=== PATIENT | female | born 1950 | race African-American/Black ===

== ENCOUNTER → 2016-12-20 14:05 | Outpatient (CLI) | payer BC ==
[2009-08-14 10:38] VITALS: BMI 23.6
== END | disposition home or self-care (01) ==
LOC: D.OPS 14:00
DX: M81.0 Age-related osteoporosis without current pathological fracture (principal)

== ENCOUNTER 2017-02-08 14:10 | Outpatient (CLI) | payer BC ==
[~2017-02-08] VITALS: Ht 177.8 cm; Wt 75.0 kg
[2017-02-08 14:50] VITALS: BP 145/89; Ht 177.8 cm; Wt 75.0 kg
--- NOTE | 2017-02-08 15:00 | NUR ---
1500 DENIES PROBLEMS WITH INJECTION, ZEINAB HECTOR SERVED, RELEASED AMB.
== END 2017-02-08 15:00 | disposition home or self-care (01) ==
LOC: D.OPS 14:10
DX: M81.0 Age-related osteoporosis without current pathological fracture (principal)

== ENCOUNTER → 2017-02-09 08:53 | Outpatient (CLI) | payer BC ==
[2017-02-08 14:50] VITALS: BMI 23.7
== END ==
LOC: D.MAMMO 08:53
DX: Z12.31 Encounter for screening mammogram for malignant neoplasm of breast (principal)

== ENCOUNTER 2017-02-18 13:41 | Emergency (ER) | payer BC ==
[2017-02-08 14:50] VITALS: BMI 23.7
== END 2017-02-18 14:32 | disposition home or self-care (01) ==
LOC: D.ER 13:41
DX: S29.012A Strain of muscle and tendon of back wall of thorax, initial encounter (principal); V43.52XA Car driver injured in collision with other type car in traffic accident, initial encounter; Y93.89 Activity, other specified; Y92.410 Unspecified street and highway as the place of occurrence of the external cause; K21.9 Gastro-esophageal reflux disease without esophagitis; I10 Essential (primary) hypertension

== ENCOUNTER → 2018-02-16 08:00 | Outpatient (CLI) | payer BC ==
[2017-02-08 14:50] VITALS: BMI 23.7
== END | disposition home or self-care (01) ==
LOC: D.MAMMO 08:00
DX: Z12.31 Encounter for screening mammogram for malignant neoplasm of breast (principal)

== ENCOUNTER 2018-08-23 06:45 | Emergency (ER) | payer OTHER ==
[~2018-08-23] VITALS: Ht 177.8 cm; Wt 77.3 kg
[2018-08-23 07:00] VITALS: Ht 177.8 cm; Wt 77.3 kg
[2018-08-23] MEDS ORDERED: TOPROL XL50 MG PO (07:01)
[2018-08-23] MEDS ORDERED: TERBINAFINE TAB 250 (07:01)
[2018-08-23] MEDS ORDERED: NIFEDIPINE ER60 MG (07:02)
[2018-08-23] MEDS ORDERED: LIPITOR40 MG PO (07:02)
[2018-08-23] MEDS ORDERED: DEXILANT60 MG PO (07:02)
[2018-08-23] MEDS ORDERED: MECLIZINE HCL25 MG PO (08:54)
[2018-08-23 09:30] VITALS: BP 175/97
== END 2018-08-23 09:23 | disposition home or self-care (01) ==
LOC: D.ER 06:45
DX: H81.09 Meniere's disease, unspecified ear (principal)

== ENCOUNTER 2018-10-15 05:25 | Day surgery (SDC) | payer OTHER ==
[2018-10-12 16:41] LABS: HEMATOCRIT 39.1 % (36.0-48.0); HEMOGLOBIN 13.1 g/dL (12-16); MCH 28.6 pg (26.0-34.0); MCHC 33.5 g/dL (31.0-37.0); MCV 85.4 fL (80.0-100.0); MEAN PLATELET VOLUME 10.7 fL (7.4-10.4); RBC 4.58 10x6/uL (4.00-5.40); RDW 13.9 % (11.5-14.5); WBC 4.9 10x3/uL (4.8-10.8)
[~2018-10-15 05:25] MED LIST: DEXILANT60 MG PO; HYDROCHLOROTH12.5 M1 PO; LIPITOR40 MG PO; MECLIZINE HCL25 MG PO; NIFEDIPINE ER60 MG PO; TERBINAFINE TAB 250; TOPROL XL50 MG PO
[2018-10-15 06:14] VITALS: BP 137/79; BMI 25.7
[2018-10-15] MEDS ORDERED: DILAUDID2 MG PO (08:27)
--- NOTE | 2018-10-15 10:29 | NUR ---
0992 IV REMOVED PRESSURE HELD
--- NOTE | 2018-10-15 15:41 | OP ---
PATIENT NAME: ISIS NEVAREZ MEDICAL RECORD: [id number] :54 LOCATION:[facility] ADMISSION DATE: SURGEON: AMBREEN LEE MD DATE OF OPERATION: 10/15/2018 PREOPERATIVE DIAGNOSES: Impingement syndrome of the right shoulder with rotator cuff tear. POSTOPERATIVE DIAGNOSES: Impingement syndrome of the right shoulder with rotator cuff tear. PROCEDURE: 1. Arthroscopic rotator cuff repair, right shoulder. 2. Arthroscopic distal clavicle excision done through separate incision -- 1 cm. 3. Arthroscopic subacromial decompression, acromioplasty and bursectomy. SURGEON: Ambreen Lee MD ANESTHESIA: General. INTRAOPERATIVE COMPLICATIONS: None. SUMMARY OF PATHOLOGIC FINDINGS: The patient has a downward sloping acromion with severe excoriation of the coracoacromial ligament as well as a full thickness rotator cuff tear of the supraspinatus tendon, also was found to have a grade IV acromioclavicular arthritis. OPERATIVE SUMMARY IN DETAIL: After obtaining the appropriate preoperative orthopedic surgery consent as well as anesthetic consultation, evaluation and clearance, the patient was brought to the operating room and placed on the operating table in supine position. After general laryngeal mask airway was administered, the patient was placed in left lateral decubitus position. All pressure points were well padded to include down leg peroneal pad as well as axillary roll. The patient was held firmly to the operating table using the vacuum pack suction system. Right upper extremity and shoulder were then prepped and draped in routine sterile fashion. The arm was held in the Arthrex traction holding device in 30 degrees of forward flexion, 30 degrees of abduction, and 10 pounds of traction laterally. Arthroscopy was established in the glenohumeral joint from the posterior portal. Anterior portal was established in the anterior safe interval. Diagnostic arthroscopy revealed the above findings. Attention was first turned to gentle debridement of the rotator cuff tearing in the subacromial space. [place] tissue ablation from Arthrex was used to denude the undersurface of the acromion of all soft tissue elements and release the coracoacromial ligament. A 5-0 barrel bur was then used to perform acromioplasty at the level of acromioclavicular joint. Through a separate anterior incision under arthroscopic visualization, a 5-0 bur was used to perform a complete distal clavicle excision. Having completed this, attention was returned to the rotator cuff tear. Further decortication of the greater tuberosity was carried out followed by a single #2 FiberTape in an inverted mattress fashion was then anchored laterally with a 5.5 SwiveLock from Arthrex resulting good reapproximation of the supraspinatus tendon back over the decorticated greater tuberosity. Having completed this, arthroscopy portal was closed in a routine interrupted fashion using 4-0 Prolene. Sterile dressings were applied. The patient was awakened and taken to recovery room in stable OPERATIVE REPORT [id number] ISIS NEVAREZ condition. All final needle and sponge counts were correct. TRANSINT:[id number] Voice Confirmation ID: [id number] DOCUMENT ID: [id number] JESUS AGUILERA, AMBREEN EATON at 1541 CC: [id number] DICTATION DATE: 10/15/18829 GIS ANALYST DEVELOPER: 10/15/18 1059 [facility] 10/15/18 [id number] [place] [address]
[2018-10-29 16:44] VITALS: BMI 25.7
== END 2018-10-15 10:25 | disposition home or self-care (01) ==
LOC: D.OPS 05:25 → D.PAN 07:30 → D.OPS 07:30
PROVIDERS: Anesthesiology; ATTEND Orthopaedic Surgery
DX: M75.122 Complete rotator cuff tear or rupture of left shoulder, not specified as traumatic (principal); M75.41 Impingement syndrome of right shoulder

== ENCOUNTER 2019-03-28 09:00 | Outpatient (CLI) | payer OTHER ==
[2018-10-29 16:44] VITALS: BMI 25.7
[~2019-03-28 09:00] MED LIST changes: +DILAUDID2 MG PO
== END 2019-03-28 10:00 | disposition home or self-care (01) ==
LOC: D.MAMMO 09:00
PROVIDERS: ATTEND Family Medicine
DX: Z12.31 Encounter for screening mammogram for malignant neoplasm of breast (principal)

== ENCOUNTER 2019-11-24 12:59 | Emergency (ER) | payer OTHER ==
[~2019-11-24] VITALS: Ht 175.3 cm; Wt 77.3 kg
[2019-11-24 13:28] VITALS: Ht 175.3 cm; Wt 77.3 kg
[2019-11-24] MEDS ORDERED: NAPROSYN500 MG PO (14:22)
[2019-11-24 15:09] VITALS: BP 132/72
== END 2019-11-24 15:22 | disposition home or self-care (01) ==
LOC: D.ER 12:59
DX: M25.562 Pain in left knee (principal); I10 Essential (primary) hypertension